=== PATIENT | female | born 1955 | race Caucasian/White ===

== ENCOUNTER → 2020-01-04 | Outpatient (CLI) | payer MEDICARE, OTHER ==
[~2020-01-04] MED LIST: ACET325T9 PO; ALLO300T PO; ATOR40TA59 PO; BIOT25006 PO; CHOL400T36 PO; DULO60CA6 PO; FURO40TA4 PO; LEVO100V9 IV; METF500T16 PO; MULT-245 PO; POTA15TA9 PO
== END | disposition home or self-care (01) ==
LOC: LAB 11:06
PROVIDERS: ATTEND Nurse Anesthetist, Certified Registered
DX: Z11.59 Encounter for screening for other viral diseases (principal)
CPT/HCPCS: U0003-CS

== ENCOUNTER → 2020-01-09 | Day surgery (SDC) | payer MEDICARE, OTHER ==
[~2020-01-09] MED LIST changes: +IV RINGERS SOLUTION,LACTATED 1,000 ML IV SCH; +ONDANSETRON PF 4 MG/2 ML VIAL. IV PRN; +PROPOFOL 10,000 MCG/ML (20ML) VIAL IV ONE
[2020-01-09 12:18] VITALS: BP 142/75
--- NOTE | 2020-01-11 15:08 | PATHOLOGY ---
[facility] Accession Number: [id number] . 01 Material submitted: . PART A: colon - TRANSVERSE POLYP. Modifiers: transverse PART B: cecum - CECUM POLYP PART C: colon - ASCENDING LIPOMA. Modifiers: ascending PART D: colon - DESCENDING POLYP. Modifiers: descending PART E: sigmoid colon - SIGMOID POLYP . 02 Diagnosis: A. Colon biopsy, transverse colon polyp: - Hyperplastic polyp/prominent mucosal fold, with coagulation artifact. . B. Colon biopsies, cecal polyp: - Hyperplastic polyp. . C. Colon biopsy, ascending colon lipoma: - Segment of colonic mucosa showing no significant pathologic abnormalities. . D. Colon biopsy, descending colon polyp: - Hyperplastic polyp. . E. Colon biopsy, sigmoid polyp: - Hyperplastic polyp. [facility] 01/11/2020 1320 Local . 02 Comment: Sections of the transverse colon, descending colon, sigmoid colon, and cecal biopsies reveal hyperplastic polyps. There are no adenomatous changes or evidence of malignancy. . Sections of the ascending colon lipoma biopsy reveal a segment of colonic mucosa showing no significant pathologic abnormalities. I cannot rule out the possibility of a submucosal lipoma. (JPM/db; 01/11/2020) . 02 Electronically signed: . Corbin Harris MD, Pathologist NPI- [id number] . 01 Gross description: . A. The specimen is received in formalin labeled "Pretz, Charley, transverse polyp" and consists of a fragment of valladares tissue measuring 0.5 x 0.3 x 0.3 cm which is entirely submitted in A1. . B. The specimen is received in formalin labeled "Pretz, Charley, cecum polyp" and consists of 2 fragments of valladares tissue measuring 0.7 x 0.3 x 0.2 cm in aggregate which are entirely submitted in B1. . C. The specimen is received in formalin labeled "Pretz, Charley, ascending" and consists of a fragment of valladares tissue measuring 0.3 x 0.3 x 0.2 cm which is entirely submitted in C1. . D. The specimen is received in formalin labeled "Pretz, Charley, descending polyp" and consists of a fragment of valladares tissue measuring 0.4 x 0.2 x 0.2 cm which is entirely submitted in D1. . E. The specimen is received in formalin labeled "Pretz, Charley, sigmoid" and consists of a polypoid segment of alas-valladares tissue measuring 0.4 x 0.4 x 0.3 cm which is entirely submitted in E1. (AMIRA; 01/10/2020) [id number] 01/10/2020 1658 Local . 02 Pathologist provided ICD-10: K63.5, Z12.11 . 02 CPT . 441248, 586930, 158624, 294400, 327253 Specimen Comment: A courtesy copy of this report has been sent to [phone] Specimen Comment: [id number] Specimen Comment: Report sent to / DR PANTOJA Specimen Comment: A duplicate report has been generated due to demographic updates. Performed at: 01 [facility] [address] [facility] [address], [place] [id number] MD Baltazar Elizabeth MD Phone: [phone] Performed at: 02 [facility] [address] [place], [place] [id number] MD Corbin Harris MD Phone: [phone]
== END ==
LOC: SURG 09:38
PROVIDERS: ATTEND Internal Medicine Gastroenterology
DX: Z12.11 Encounter for screening for malignant neoplasm of colon (principal); K57.30 Diverticulosis of large intestine without perforation or abscess without bleeding; K63.5 Polyp of colon; E66.01 Morbid (severe) obesity due to excess calories; Z68.41 Body mass index [BMI] 40.0-44.9, adult; Z86.010 Personal history of colon polyps; Z79.01 Long term (current) use of anticoagulants; Z79.899 Other long term (current) drug therapy; Z87.39 Personal history of other diseases of the musculoskeletal system and connective tissue
CPT/HCPCS: 45380; 45385; 82947; 88305; J2704; J7120